=== PATIENT | female | born 1965 | race Two or more races ===

== ENCOUNTER 2022-02-20 14:26 | Emergency (ER) | payer OTHER ==
[~2022-02-20] VITALS: Ht 165.1 cm; Wt 158.8 kg
== END 2022-02-20 21:29 | disposition left against medical advice (07) ==
LOC: ER 14:26
DX: R06.02 Shortness of breath (principal); E66.01 Morbid (severe) obesity due to excess calories; Z20.822 Contact with and (suspected) exposure to COVID-19